=== PATIENT | male | born 1955 | race Caucasian/White ===

== ENCOUNTER 2017-01-24 11:40 | Emergency (ER) | payer BC ==
[2017-01-24 12:01] VITALS: BP 149/91
[2017-01-24 12:24] LABS: BILIRUBIN,URINE NEGATIVE (NEGATIVE); PH,URINE 5.5 PH (5.0-7.5)
[2017-01-24 12:27] LABS: UA w/ MICROSCOPIC CHARGE YES
[2017-01-24 12:34] LABS: UR CULTURE IF IND INDICATED; WBC,URINE >25 /HPF (0-3)
--- NOTE | 2017-01-24 12:40 | ED Physician Documentation ---
History of Present Illness - Stated complaint Stated Complaint: MALE - Chief complaint Chief Complaint: Abd Pain - Additonal information Additional information: hx from pt healthy 61 male with hx UTIs recent travel hiking in [place] and developed urinary sx - freq urgency discomfort some hematuria no fever no NV no abd or flank pain no testicular pain or swelling, no lesions or discharge Review of Systems Constitutional: denies: Fever, Chills Cardiac: denies: Chest pain / pressure Respiratory: denies: Dyspnea GI: denies: Abdominal Pain : reports: Dysuria, Frequency, Hematuria Musculoskeletal: denies: Back pain Immunocompromised: denies: Immunocompromised PD PAST MEDICAL HISTORY - Present Medications Home Medications: Ambulatory Orders Medication Instructions Recorded Confirmed Cephalexin [Keflex] 500 mg PO Q6H #28 capsule 01/24/17 - Allergies Allergies/Adverse Reactions: Allergies Allergy/AdvReac Type Severity Reaction Status Date / Time No Known Drug Allergies Allergy Verified 01/24/17 12:02 PD ED PE NORMAL - Vitals Vital signs reviewed: Yes - General General: Alert and oriented X 3 - HEENT HEENT: PERRL - Neck Neck: No JVD - Cardiac Cardiac: RRR - Respiratory Respiratory: No respiratory distress, Clear bilaterally - Abdomen Abdomen: Soft, Non tender - Male Male : Deferred (pt states no lesions no dc no testicular pain no scrotal swelling) - Back Back: No CVA TTP - Derm Derm: Normal color Results - Vitals Vitals: Vital Signs - 24 hr 01/24/17 11:56 Temperature 36.8 C Heart Rate 69 Respiratory 16 Rate Blood Pressure 149/91 H O2 Saturation 97 Oxygen O2 Source Room air - Labs Labs: Laboratory Tests 01/24/17 12:10 Urine Color YELLOW Urine Clarity CLOUDY Urine pH 5.5 Ur Specific [place] 1.010 Urine Protein NEGATIVE Urine Glucose (UA) NEGATIVE Urine Ketones NEGATIVE Urine Occult Blood SMALL H Urine Nitrite NEGATIVE Urine Bilirubin NEGATIVE Urine Urobilinogen 0.2 (NORMAL) Ur Leukocyte Esterase LARGE H Urine RBC 0-5 Urine WBC >25 H Urine WBC Clumps PRESENT Ur Squamous Epith Cells NONE SEEN Urine Bacteria Many H Ur Microscopic Review INDICATED Urine Culture Comments INDICATED Departure - Departure Disposition: 01 Home, Self Care Clinical Impression: Urinary tract infection Qualifiers: Urinary tract infection type: acute cystitis Hematuria presence: without hematuria Qualified Code(s): N30.00 - Acute cystitis without hematuria Condition: Good Instructions: ED UTI Cystitis Male Prescriptions: Cephalexin [Keflex] 500 mg PO Q6H #28 capsule Comments: You do have a urine infection. I have prescribed an antibiotic called keflex - this is well tolerated and usually covers the kind of bacteria that cause urine infections very well We will run a urine culture to be sure the bacteria causing your infection are sensitive to this antibiotic Also keflex does not treat prostate infections very well - but your symptoms do not suggest your prostate is involved - and the class of medications that best treat the prostate (fluoroquinolones) are known to cause tendon and ligament weakness and rupture and since you are so healthy and active, I would prefer to avoid that class of medication if possible Please follow up with your PMD for a recheck and a a repeat urine test after finishing the antibiotics Return to the ER if worse Also please get your blood pressure rechecked - it was high today
== END 2017-01-24 13:25 | disposition home or self-care (01) ==
LOC: ED 11:40
DX: N30.00 Acute cystitis without hematuria (principal); R03.0 Elevated blood-pressure reading, without diagnosis of hypertension
CPT/HCPCS: 81001; 81003; 87086; 99282; 99283